=== PATIENT | female | born 1990 | race Caucasian/White ===

== ENCOUNTER → 2018-02-23 | Outpatient (CLI) | payer OTHER | LOC: BRMIMAGING 10:03 | PROVIDERS: ATTEND Obstetrics & Gynecology | DX: N63.20 Unspecified lump in the left breast, unspecified quadrant (principal) | CPT/HCPCS: 76641-PO ==

== ENCOUNTER → 2018-03-10 | Outpatient (CLI) | payer OTHER | LOC: BRMIMAGING 08:52 | PROVIDERS: ATTEND Obstetrics & Gynecology | DX: R92.8 Other abnormal and inconclusive findings on diagnostic imaging of breast (principal) ==